=== PATIENT | female | born 1950 | race Caucasian/White ===

== ENCOUNTER 2017-10-21 16:17 | Emergency (ER) | payer OTHER ==
[~2017-10-21] VITALS: Ht 157.5 cm; Wt 75.3 kg
[~2017-10-21 16:17] MED LIST: ADVAIR 100/501 DISK IH; AMBIEN10 MG PO; AMITIZA24 MICROGR PO; ARTHROTEC 501 TABLET PO; ASMANEX TW200 MICRO1 IH; ASPIR-LOW81 MG PO; Ambien PO; B-121000 MC2 PO; BACLOFEN20 MG PO; CAL-MAG TABLET1 EACH PO; CALCIUM + D 601 EACH PO; CALCIUM CARBON600 M1 PO; CINNAMON PLUS1 EACH PO; CLOTRIMAZOLE10 MG MM; CRANBERRY 12,61 EACH PO; CURCUMIN PO; CYMBALTA30 MG PO; CYTOTEC200 MCG PO; DAILY VALUE1 EACH PO; DELTASONE1 MG PO; DELTASONE20 MG PO; DEXILANT60 MG PO; DILAUDID4 MG PO; FLEXERIL10 MG PO; FLONASE16 G1 NS; FLOVENT DISKUS1 DIS2 IH; Flexeril PO; IRON325 MG PO; KADIAN10 MG EPID; KLONOPIN1 M2 PO; KLONOPIN1 MG PO; KlonoPIN PO; LANTUS (UNITS)1 UNIT SC; LANTUS 10100 UNITS/ SC; LANTUS 3 M100 UNITS/ SC; LANTUS100 UNIT/1 SQ; LIDODERM 5% P1 PATCH TD; LORATADINE PO; METHOTREXATE2.5 MG PO; MISOPROSTOL200 MCG PO; MORPHINE SQ; MULTIPLE VITAM1 EACH PO; NAPROSYN375 MG PO; NEURONTIN300 MG PO; NEXIUM40 MG PO; NOVOLOG (UNITS1 UNIT SC; NOVOLOG PE100 UNITS/ SC; PERCOCET 10-321 EACH PO; PLAQUENIL200 MG PO; PRAVACHOL80 MG PO; PROVENTIL,2.5 MG/0.5 IH; PSEUDOEPHEDRINE PO; PYRIDOXINE,VIT100 MG PO; REMERON15 M2 PO; ROXICET 5-325500 ML PO; Remeron PO; Robitussin AC,Tussi- PO; SEROQUEL12.5 MG PO; SEROQUEL200 MG PO; SEROQUEL300 MG PO; SEROQUEL400 MG PO; SEROquel PO; SINGULAIR10 MG PO; Singulair PO; TRAZODONE HCL100 MG PO; TRESIBA FL100 UNIT/1 SC; TRILEPTAL300 MG PO; TRILEPTAL600 MG PO; TURMERIC PO; VALIUM2 MG PO; VENTOLIN HFA18 GM IH; VOLTAREN50 MG PO; Vitamin D, Drisdol PO; WELLBUTRIN SR150 MG PO; ZANTAC300 MG PO; ZOCOR20 MG PO; ZOCOR40 MG PO; Zocor PO; [UNRECOGNIZED DRUG - OTHER] TD
[2017-10-21 19:02] LABS: CHLORIDE 103 mEq/L (99-109); POTASSIUM 4.3 mEq/L (3.7-5.4); SODIUM 139 mEq/L (136-147)
[2017-10-21 19:04] LABS: GLUCOSE 101 mg/dL (70-99)
[2017-10-21 19:07] LABS: CREATININE 0.7 mg/dL (0.6-1.3); GFR ESTIMATE (CALCULATED) > 59 mL/min/
[2017-10-21 19:14] LABS: APPEARANCE CLEAR ((CLEAR)); BILIRUBIN NEGATIVE; BLOOD NEGATIVE; COLOR STRAW ((YELLOW)); GLUCOSE (STRIP) NEGATIVE; KETONES NEGATIVE; LEUKOCYTES NEGATIVE; NITRITE NEGATIVE; PROTEIN (STRIP) NEGATIVE; SPECIFIC GRAVITY 1.011 (1.000-1.030); UCUL ADDED? NO; UROBILINOGEN 0.2 MG/DL (0.2-1.0)
[2017-10-21 19:33] LABS: HEMATOCRIT 39.4 % (36.0-46.0); HEMOGLOBIN 13.2 G/DL (11.9-15.5); MCH 29.9 PG (29.0-34.0); MCHC 33.5 G/DL (30.0-36.0); MCV 89.1 FL (83-99); PLATELET COUNT 297 K/uL (156-360); RBC DIS.WIDTH-SD 42.8 % (39-53); RED BLOOD COUNT 4.42 M/uL (3.80-5.20); WHITE BLOOD COUNT 6.1 K/uL (4.1-10.2)
[2017-10-21 20:18] LABS: UREA NITROGEN (BUN) 17 mg/dL (9-23)
[2017-10-21 22:14] VITALS: BP 155/91
[2017-10-22] MEDS ORDERED: ARNUITY ELLIP100 MCG IH (16:59)
== END 2017-10-21 22:15 | disposition home or self-care (01) ==
LOC: EME 16:17
PROVIDERS: Nurse Practitioner Family
DX: N39.0 Urinary tract infection, site not specified (principal); N30.20 Other chronic cystitis without hematuria; Z87.440 Personal history of urinary (tract) infections; I10 Essential (primary) hypertension; E11.9 Type 2 diabetes mellitus without complications; J43.9 Emphysema, unspecified; J45.909 Unspecified asthma, uncomplicated; K21.9 Gastro-esophageal reflux disease without esophagitis; M35.00 Sjogren syndrome, unspecified; M06.9 Rheumatoid arthritis, unspecified; F41.9 Anxiety disorder, unspecified; F32.9 Major depressive disorder, single episode, unspecified; F31.9 Bipolar disorder, unspecified; Z79.891 Long term (current) use of opiate analgesic; Z90.49 Acquired absence of other specified parts of digestive tract; Z90.710 Acquired absence of both cervix and uterus; Z88.0 Allergy status to penicillin; Z88.1 Allergy status to other antibiotic agents; Z88.2 Allergy status to sulfonamides; Z91.09 Other allergy status, other than to drugs and biological substances
CPT/HCPCS: 80048; 81003; 83605; 85027; 87040; 99281; 99285; J3370